=== PATIENT | female | born 1990 | race American Indian/Alaskan Native ===

== ENCOUNTER 2022-07-04 23:07 | Emergency (ER) | payer SELFPAY ==
[2022-07-05 01:10] VITALS: BP 140/83
[2022-07-05] MEDS ORDERED: ACETAMINOPHEN 500 MG TAB PO ONE (01:15)
--- NOTE | 2022-07-05 03:07 | Cat Scan Report ---
CT head/brain wo con INDICATION / CLINICAL INFORMATION: fall headache dizziness. TECHNIQUE: Axial CT imaging of the brain was obtained without contrast. Coronal and sagittal reformatted imaging obtained and reviewed. All CT scans at this location are performed using CT dose reduction for ALAR A by means of automated exposure control. COMPARISON: None available. FINDINGS: No intracranial hemorrhage, mass or midline shift noted. No extra-axial fluid collection or suggestio n of acute territorial infarction. The ventricular system and basilar cisterns are normal. Visualized paranasal sinuses are clear. No calvarial fracture noted. IMPRESSION: 1. Negative CT brain. No acute intracranial abnormality. Signer Name: Cristina Bueno MD Signed: 07/05/2022 3:02 AM Workstation Name: [id number]
--- NOTE | 2022-07-05 03:10 | Cat Scan Report ---
CT cervical spine wo con INDICATION / CLINICAL INFORMATION: fall neck pain. TECHNIQUE: Axial CT imaging of the cervical spine was obtained without contrast. Coronal and sagittal reformatte d imaging obtained and reviewed. All CT scans at this location are performed using CT dose reduction for ALARA by means of automated exposure control. COMPARISON: None available. FINDINGS: No cervical spine fracture or malalignment. No significant degenerative change present. Paravertebral soft tissues demonstrates marked diffuse enlargement of the thyroid gland. The appearan ce is consistent with goiter. Visualized lung apices are clear. IMPRESSION: 1. No cervical spine fracture or traumatic malalignment noted. 2. Enlarged thyroid gland consistent with goiter. Signer Name: Cristina Bueno MD Signed: 07/05/2022 3:05 AM Workstation Name: [id number]
== END 2022-07-05 04:59 | disposition left against medical advice (07) ==
LOC: ED 23:07
DX: Z00.00 Encounter for general adult medical examination without abnormal findings (principal); Z53.21 Procedure and treatment not carried out due to patient leaving prior to being seen by health care provider; W19.XXXA Unspecified fall, initial encounter; Y93.89 Activity, other specified; Y92.89 Other specified places as the place of occurrence of the external cause; Y99.8 Other external cause status